=== PATIENT | female | born 1985 | race Asian ===

== ENCOUNTER 2017-12-12 23:12 | Emergency (ER) | payer MEDICAID ==
[2017-12-13] MEDS: ALBUTEROL 0.083% (NEB) 2.5 MG/3 ML AMP NEB (03:48)
[2017-12-13] MEDS: IPRATROPIUM (NEB) 0.5 MG/2.5 ML AMP NEB (03:48)
== END 2017-12-13 05:28 | disposition home or self-care (01) ==
LOC: FTE 23:12
DX: J45.20 Mild intermittent asthma, uncomplicated (principal)
CPT/HCPCS: 94664; 99283-25